=== PATIENT | female | born 1945 | race Caucasian/White ===

== ENCOUNTER 2017-05-27 05:56 | Inpatient (IN) | payer MEDICARE, BC ==
[2017-05-26 14:58] LABS: BASOPHILS % (AUTO) 0.3 % (0-1); EOSINOPHILS # (AUTO) 0.3 X10'3 (0-0.9); EOSINOPHILS % (AUTO) 3.1 % (0-6); LYMPHOCYTES # (AUTO) 2.8 X10'3 (1.1-4.8); LYMPHOCYTES % (AUTO) 28.2 % (21-51); MEAN CORPUSCULAR HEMOGLOBIN 25.6 PG (27.0-31.0); MEAN CORPUSCULAR HGB CONC 32.7 % (33.0-36.5); MEAN CORPUSCULAR VOLUME 78.5 FL (78-98); MEAN PLATELET VOLUME 9.6 FL (7.4-10.4); MONOCYTES # (AUTO) 0.6 X10'3 (0-0.9); MONOCYTES % (AUTO) 6.2 % (2-12); NEUTROPHILS # (AUTO) 6.3 X10'3 (1.8-7.7); NEUTROPHILS % (AUTO) 62.2 % (42-75); PRE OP HEMOGLOBIN 11.8 g/dL (12.0-16.0); PRE OP PLATELET COUNT 324 X10'3 (140-440); RED BLOOD COUNT 4.59 X10'6 (4.20-5.60)
[2017-05-26 15:13] LABS: PRE OP PROTIME 10.1 SECONDS (9.0-12.0)
[2017-05-26 15:20] LABS: ALBUMIN 3.6 G/DL (3.4-5.0); ALBUMIN/GLOBULIN RATIO 0.9 (1.1-1.5); ALKALINE PHOSPHATASE 94 IU/L (46-116); BLOOD UREA NITROGEN 13 MG/DL (7-18); BUN/CREATININE RATIO 14.4 (6.6-38.0); CALCIUM 9.2 MG/DL (8.5-10.1); CHLORIDE 109 MMOL/L (99-107); PRE OP ALT 23 U/L (30-65); PRE OP ANION GAP 7 (8-16); PRE OP AST 20 U/L (10-37); PRE OP BILIRUB, TOTAL 0.4 MG/DL (0.0-1.0); PRE OP GLUCOSE 116 MG/DL (70-104); PRE OP POTASSIUM 4.1 MMOL/L (3.4-5.1); PRE OP SODIUM 144 MMOL/L (135-145); TOTAL CARBON DIOXIDE 27.8 MMOL/L (24-32); TOTAL PROTEIN 7.5 G/DL (6.4-8.2); eGFR 61 ML/MIN
[~2017-05-27] VITALS: Ht 152.4 cm; Wt 76.2 kg
[~2017-05-27 05:56] MED LIST: CALC-491 PO; CHOL10002 PO; METH10005 PO; OMEP20CA10 PO; VANCOMYCIN INJ 1000 MG in NORMAL SALINE 250ml IV.SOLN IV ONE; VITA150T PO; VITC500T PO; VITE1000C PO; ceFAZolin 2gm in dextrose, iso 100 ML IV ONE; famotidine 20mg tablet PO ONE; ringers solution, lacted 1,000 ML IV SCH; tranexamic acid inj. 750 MG in normal saline 100ml IV soln 92.5 ML IV ONE
[2017-05-27] MEDS ORDERED: LIDOcaine 1% (10mg/ml) 2ml vial ONE (06:19)
[2017-05-27] MEDS ORDERED: vancomycin 1,000mg inj ONE (06:48)
[2017-05-27] MEDS ORDERED: ketorolac trometh. 30mg/ml inj. ONE (06:48)
[2017-05-27] MEDS ORDERED: ROPIVAcaine 0.5% (5mg/ml) 30ml vial ONE (06:48)
[2017-05-27] MEDS ORDERED: iohexol 300mg/ml 100ml inj. ONE (08:07)
[2017-05-27 09:52] VITALS: BP 140/75
[2017-05-27 09:53] VITALS: BP 140/75
== END 2017-05-27 09:00 | disposition home or self-care (01) | DRG 554 ==
LOC: PAS IN 05:56 → EDSTATUS 09:00
PROVIDERS: ADMIT Orthopaedic Surgery; ATTEND Orthopaedic Surgery
PROC: BW241ZZ Computerized Tomography (CT Scan) of Chest and Abdomen using Low Osmolar Contrast (ICD-10-PCS; principal; 2017-05-27)
DX: M17.12 Unilateral primary osteoarthritis, left knee (principal); Z53.09 Procedure and treatment not carried out because of other contraindication; Z96.651 Presence of right artificial knee joint; Z88.2 Allergy status to sulfonamides; Z88.5 Allergy status to narcotic agent; Z79.899 Other long term (current) drug therapy; Z87.891 Personal history of nicotine dependence
CPT/HCPCS: 36415; 71046; 71260; 80053; 85025; 85610; 85730; 87070; J0690; J1885; J2795; J3370; J3490; J7030; J7120; Q9967

== ENCOUNTER 2017-06-03 07:20 | Day surgery (SDC) | payer MEDICARE, BC ==
[~2017-06-03] VITALS: Ht 152.4 cm; Wt 75.9 kg
[~2017-06-03 07:20] MED LIST changes: -VANCOMYCIN INJ 1000 MG in NORMAL SALINE 250ml IV.SOLN IV ONE; -ceFAZolin 2gm in dextrose, iso 100 ML IV ONE; -famotidine 20mg tablet PO ONE; -ringers solution, lacted 1,000 ML IV SCH; -tranexamic acid inj. 750 MG in normal saline 100ml IV soln 92.5 ML IV ONE
[2017-06-03 07:40] VITALS: BP 119/88
[2017-06-03] MEDS ORDERED: normal saline 1000ml 1,000 ML IV PRN (08:00)
[2017-06-03] MEDS ORDERED: fentaNYL/PF 50MCG/1 ML 2ML syringe IV PRN (08:45)
[2017-06-03] MEDS ORDERED: midazolam 2 mg/2 ml injection IV PRN (08:45)
[2017-06-03] MEDS ORDERED: midazolam 2 mg/2 ml injection ONE (09:03)
[2017-06-03 09:38] VITALS: BP 117/53
[2017-06-03 09:54] VITALS: BP 113/49
[2017-06-03 10:05] VITALS: BP 121/62
[2017-06-03 10:30] VITALS: BP 121/62
[2017-06-03 14:30] VITALS: BP 114/67
== END 2017-06-03 14:50 | disposition home or self-care (01) ==
LOC: SSTAY O 07:20
PROVIDERS: ATTEND Radiology Vascular & Interventional Radiology
DX: C34.12 Malignant neoplasm of upper lobe, left bronchus or lung (principal); E78.5 Hyperlipidemia, unspecified; M19.90 Unspecified osteoarthritis, unspecified site; Z87.891 Personal history of nicotine dependence; M81.0 Age-related osteoporosis without current pathological fracture; Z90.89 Acquired absence of other organs; Z98.890 Other specified postprocedural states; Z72.89 Other problems related to lifestyle; Z79.899 Other long term (current) drug therapy; Z88.5 Allergy status to narcotic agent; Z88.2 Allergy status to sulfonamides; Z88.0 Allergy status to penicillin; Z88.6 Allergy status to analgesic agent
CPT/HCPCS: 32405; 71045; 77012; 88341; 88342; J2250; J7030; 88305

== ENCOUNTER 2019-09-13 14:03 | Inpatient (IN) | payer MEDICARE, BC ==
[~2019-09-13] VITALS: Ht 152.4 cm; Wt 72.7 kg
[~2019-09-13 14:03] MED LIST changes: +ALBU8HFA PO; +ASPI-1264 PO; +B12 PO; -CALC-491 PO; +CLOTRIMAZOLE CREAM; +DOCU-148; +FERR325T28 PO; +MILK175C5 PO; +MILK1TAB PO; +MOME17SP BOTHNARES; +MULT-1085 PO; +OMEG-143 PO; +OMEG1CAP2 PO; -OMEP20CA10 PO; +OMEP20CA15 PO; +TRIAMCINOLONE CREAM; -VITA150T PO; +VITAMIN A PO; +[UNRECOGNIZED DRUG - MIXTURE]
[2019-09-13 14:57] LABS: BASOPHILS # (AUTO) 0.1 X10'3 (0-0.2); BASOPHILS % (AUTO) 0.5 % (0-1); EOSINOPHILS # (AUTO) 0.8 X10'3 (0-0.9); EOSINOPHILS % (AUTO) 5.2 % (0-6); HEMATOCRIT 28.6 % (35.0-45.0); HEMOGLOBIN 9.2 g/dl (12.0-16.0); LYMPHOCYTES # (AUTO) 1.8 X10'3 (1.1-4.8); MEAN CORPUSCULAR HEMOGLOBIN 26.6 PG (27.0-31.0); MEAN CORPUSCULAR HGB CONC 32.1 g/dL (33.0-36.5); MEAN CORPUSCULAR VOLUME 82.8 FL (78-98); MEAN PLATELET VOLUME 8.9 FL (7.4-10.4); MONOCYTES # (AUTO) 0.7 X10'3 (0-0.9); MONOCYTES % (AUTO) 4.4 % (2-12); NEUTROPHILS # (AUTO) 12.9 X10'3 (1.8-7.7); NEUTROPHILS % (AUTO) 78.9 % (42-75); PLATELET COUNT 366 X10'3 (140-440); RED BLOOD COUNT 3.46 X10'6 (4.20-5.60); RED CELL DISTRIBUTION WIDTH 17.3 % (11.5-14.5); WHITE BLOOD COUNT 16.4 X10'3 (4.5-11.0)
[2019-09-13 15:16] LABS: ALANINE AMINOTRANSFERASE 62 U/L (12-78); ALBUMIN 2.8 G/DL (3.4-5.0); ALBUMIN/GLOBULIN RATIO 0.6 (1.1-1.5); ALKALINE PHOSPHATASE 315 IU/L (46-116); ANION GAP 15 (8-16); ASPARTATE AMINO TRANSFERASE 41 U/L (10-37); BILIRUBIN,TOTAL 0.4 MG/DL (0.1-1.0); BLOOD UREA NITROGEN 20 MG/DL (7-18); BUN/CREATININE RATIO 15.6 (6.6-38.0); CALCIUM 9.7 MG/DL (8.5-10.1); CHLORIDE 100 MMOL/L (99-107); CREATININE 1.28 MG/DL (0.40-0.90); GLUCOSE 104 MG/DL (70-104); POTASSIUM 3.1 MMOL/L (3.5-5.1); SODIUM 136 MMOL/L (135-145); TOTAL CARBON DIOXIDE 20.6 MMOL/L (24-32); TOTAL PROTEIN 7.3 G/DL (6.4-8.2); eGFR 41 ML/MIN
[2019-09-13 15:29] LABS: C-REACTIVE PROTEIN 18.97 MG/DL (0.0-0.5); LACTATE DEHYDROGENASE 248 U/L (81-234)
[2019-09-13 15:33] LABS: FERRITIN 87 NG/ML (8-252)
[2019-09-13] MEDS ORDERED: cefepime 1GM in D5W 50mL 50 ML IV ONE (15:50)
[2019-09-13] MEDS ORDERED: normal saline 1000ML IV soln IV ONE (15:50)
[2019-09-13] MEDS ORDERED: ondansetron/PF 4mg/2ml inj IV PRN (17:20)
[2019-09-13] MEDS ORDERED: acetaminophen 325mg tablet PO PRN (17:20)
[2019-09-13] MEDS: normal saline 1000ml 1,000 ML IV SCH (17:20)
[2019-09-13] MEDS ORDERED: mag hydrox/Alum hydrox/simeth 30ml oral suspension PO PRN (17:20)
[2019-09-13] MEDS ORDERED: magnesium hydroxide 30ml (MOM) UD suspension PO PRN (17:20)
[2019-09-13] MEDS ORDERED: CYAN-51 PO (18:11)
[2019-09-13] MEDS ORDERED: VITA-332 PO (18:11)
[2019-09-13] MEDS ORDERED: NYST1000 PO (18:19)
[2019-09-13] MEDS ORDERED: nystatin 500,000 unit/5ML UD oral suspension PO PRN (18:25)
--- NOTE | 2019-09-13 19:20 | NUR ---
Alpa Emery, daughter
[2019-09-13] MEDS: vancomycin 250MG/10ML UD oral solution 10ML BOTTLE PO SCH (20:27)
[2019-09-13] MEDS: heparin, porcine 5000 units/ml vial SQ SCH (20:28)
[2019-09-13] MEDS ORDERED: potassium Cl 20 mEq SR tablet PO PRN (22:00)
[2019-09-13] MEDS ORDERED: potassium CL 10mEq/100ml bag 100 ML IV PRN (22:00)
[2019-09-13 22:35] VITALS: BP 104/47
[2019-09-14] MEDS: cefepime 1GM in D5W 50mL 50 ML IV SCH ×3 (00:06→16:07)
[2019-09-14] MEDS: potassium Cl 20 mEq SR tablet PO PRN ×2 (02:26→21:08)
[2019-09-14] MEDS: vancomycin 250MG/10ML UD oral solution 10ML BOTTLE PO SCH ×4 (02:26→21:07)
[2019-09-14 02:41] LABS: BASOPHILS # (AUTO) 0.1 X10'3 (0-0.2); BASOPHILS % (AUTO) 0.3 % (0-1); EOSINOPHILS # (AUTO) 0.4 X10'3 (0-0.9); EOSINOPHILS % (AUTO) 2.2 % (0-6); HEMATOCRIT 25.3 % (35.0-45.0); HEMOGLOBIN 8.4 g/dl (12.0-16.0); LYMPHOCYTES # (AUTO) 1.2 X10'3 (1.1-4.8); LYMPHOCYTES % (AUTO) 5.9 % (21-51); MEAN CORPUSCULAR HEMOGLOBIN 27.2 PG (27.0-31.0); MEAN CORPUSCULAR HGB CONC 33.1 g/dL (33.0-36.5); MEAN CORPUSCULAR VOLUME 82.4 FL (78-98); MEAN PLATELET VOLUME 8.7 FL (7.4-10.4); MONOCYTES # (AUTO) 0.6 X10'3 (0-0.9); MONOCYTES % (AUTO) 2.7 % (2-12); NEUTROPHILS # (AUTO) 18.2 X10'3 (1.8-7.7); NEUTROPHILS % (AUTO) 88.9 % (42-75); PLATELET COUNT 336 X10'3 (140-440); RED BLOOD COUNT 3.07 X10'6 (4.20-5.60); WHITE BLOOD COUNT 20.4 X10'3 (4.5-11.0)
[2019-09-14 02:52] LABS: ALBUMIN 2.5 G/DL (3.4-5.0); ANION GAP 13 (8-16); BLOOD UREA NITROGEN 15 MG/DL (7-18); BUN/CREATININE RATIO 13.9 (6.6-38.0); CALCIUM 8.6 MG/DL (8.5-10.1); CHLORIDE 105 MMOL/L (99-107); CREATININE 1.08 MG/DL (0.40-0.90); GLUCOSE 116 MG/DL (70-104); MAGNESIUM 1.9 MG/DL (1.5-2.4); POTASSIUM 3.4 MMOL/L (3.5-5.1); SODIUM 138 MMOL/L (135-145); TOTAL CARBON DIOXIDE 19.9 MMOL/L (24-32); eGFR 49 ML/MIN
[2019-09-14 03:19] LABS: ANISOCYTOSIS 1+; PLATELET ESTIMATE NORMAL; TOTAL CELLS COUNTED 100
[2019-09-14] MEDS: normal saline 1000ml 1,000 ML IV SCH ×2 (03:47→13:20)
[2019-09-14 06:00] VITALS: BP 100/34
[2019-09-14] MEDS ORDERED: FATTY ACIDS PO SCH (08:00)
[2019-09-14] MEDS ORDERED: METHYLSULFONYLMETHANE PO SCH (08:00)
[2019-09-14] MEDS ORDERED: FISH OIL PO SCH (08:00)
[2019-09-14] MEDS ORDERED: OMEGA PO SCH (08:00)
[2019-09-14] MEDS ORDERED: [UNRECOGNIZED DRUG - OTHER] PO SCH (08:00)
[2019-09-14] MEDS ORDERED: VITAMIN A ACETATE PO SCH (08:00)
[2019-09-14] MEDS: heparin, porcine 5000 units/ml vial SQ SCH ×2 (09:07→21:07)
[2019-09-14] MEDS: ascorbic acid 500mg tablet PO SCH (09:08)
[2019-09-14] MEDS: vitamin D (cholecalciferol) 1,000 unit tablet PO SCH (09:10)
[2019-09-14] MEDS: multivitamins, therapeutics tablet PO SCH (09:10)
[2019-09-14] MEDS: pantoprazole 40mg Tablet.DR PO SCH (09:10)
[2019-09-14] MEDS ORDERED: ipratropium/albuterol 3ml nebule NEB PRN (10:05)
[2019-09-14] MEDS ORDERED: magnesium 4gm in 100ml NS 100 ML IV PRN (10:05)
[2019-09-14] MEDS: K and/or MAG REPLACEMENT MC SCH ×2 (10:05→20:00)
[2019-09-14] MEDS: levoFLOXACIN-Levaquin 750MG/D5 150 ML IV SCH (10:05)
[2019-09-14] MEDS ORDERED: magnesium Cl slow-release 64mg tablet PO PRN (10:05)
[2019-09-14 11:00] VITALS: BP 106/39
[2019-09-14] MEDS ORDERED: methylPREDNISolone sod succ 125mg/2ml vial IV ONE (11:15)
[2019-09-14] MEDS ORDERED: iohexol 350MG/ML 100ml bottle IV ONE (11:38)
[2019-09-14] MEDS ORDERED: ipratropium/albuterol 3ml nebule NEB SCH (12:00)
--- NOTE | 2019-09-14 12:16 | NUR ---
Patient left for CT scan.
[2019-09-14 15:00] VITALS: BP 97/67
[2019-09-14] MEDS: ipratropium/albuterol 3ml nebule NEB SCH ×3 (16:11→23:04)
--- NOTE | 2019-09-14 17:28 | NUR ---
Notified PAGER ID: [phone] MESSAGE: [phone] Olive Lucas. HR is sustaining 120's up to 140's. DRAKE May ext [phone]
[2019-09-14] MEDS ORDERED: methylPREDNISolone sod succ/PF 40mg inj. IV SCH (18:00)
[2019-09-14] MEDS ORDERED: diltiazem 5mg/ml 5ml inj. IV ONE (18:05)
--- NOTE | 2019-09-14 19:45 | NUR ---
Patient in room PCU 3016. I have received report from DRAKE Stearns and had the opportunity to ask questions and assume patient care.
[2019-09-14 20:20] VITALS: BP 116/66
[2019-09-14 23:00] VITALS: BP 140/52
[2019-09-15] MEDS: normal saline 1000ml 1,000 ML IV SCH ×3 (00:19→23:25)
[2019-09-15] MEDS: cefepime 1GM in D5W 50mL 50 ML IV SCH ×4 (00:26→23:25)
[2019-09-15 01:59] VITALS: BP 130/65
[2019-09-15] MEDS: vancomycin 250MG/10ML UD oral solution 10ML BOTTLE PO SCH ×2 (02:06→08:09)
[2019-09-15] MEDS: potassium Cl 20 mEq SR tablet PO PRN (02:06)
[2019-09-15] MEDS: diltiazem 30mg tablet PO SCH ×4 (02:06→20:15)
[2019-09-15] MEDS: ipratropium/albuterol 3ml nebule NEB SCH ×6 (03:00→22:48)
[2019-09-15] MEDS: methylPREDNISolone sod succ/PF 40mg inj. IV SCH ×3 (04:19→20:16)
[2019-09-15 05:45] LABS: BASOPHILS % (AUTO) 0.3 % (0-1); EOSINOPHILS % (AUTO) 0 % (0-6); HEMATOCRIT 22.9 % (35.0-45.0); HEMOGLOBIN 7.5 g/dl (12.0-16.0); LYMPHOCYTES # (AUTO) 1.2 X10'3 (1.1-4.8); LYMPHOCYTES % (AUTO) 8.6 % (21-51); MEAN CORPUSCULAR HEMOGLOBIN 27.3 PG (27.0-31.0); MEAN CORPUSCULAR HGB CONC 32.9 g/dL (33.0-36.5); MEAN PLATELET VOLUME 8.8 FL (7.4-10.4); MONOCYTES # (AUTO) 0.4 X10'3 (0-0.9); MONOCYTES % (AUTO) 2.9 % (2-12); NEUTROPHILS # (AUTO) 12.3 X10'3 (1.8-7.7); NEUTROPHILS % (AUTO) 88.2 % (42-75); PLATELET COUNT 337 X10'3 (140-440); RED BLOOD COUNT 2.77 X10'6 (4.20-5.60); RED CELL DISTRIBUTION WIDTH 17.2 % (11.5-14.5)
[2019-09-15 05:58] LABS: ALBUMIN 2.5 G/DL (3.4-5.0); ANION GAP 14 (8-16); BLOOD UREA NITROGEN 13 MG/DL (7-18); BUN/CREATININE RATIO 11.9 (6.6-38.0); CALCIUM 9.9 MG/DL (8.5-10.1); CHLORIDE 110 MMOL/L (99-107); CREATININE 1.09 MG/DL (0.40-0.90); GLUCOSE 204 MG/DL (70-104); MAGNESIUM 1.7 MG/DL (1.5-2.4); POTASSIUM 3.7 MMOL/L (3.5-5.1); SODIUM 143 MMOL/L (135-145); TOTAL CARBON DIOXIDE 18.6 MMOL/L (24-32); eGFR 49 ML/MIN
--- NOTE | 2019-09-15 06:08 | NUR ---
Problems reprioritized. Patient report given, questions answered & plan of care reviewed with DRAKE Pierre.
[2019-09-15 07:00] VITALS: BP 140/72
[2019-09-15 07:40] LABS: ANISOCYTOSIS 1+; PLATELET ESTIMATE NORMAL; TOTAL CELLS COUNTED 100
[2019-09-15] MEDS: K and/or MAG REPLACEMENT MC SCH ×2 (08:00→20:00)
[2019-09-15] MEDS: ascorbic acid 500mg tablet PO SCH (08:07)
[2019-09-15] MEDS: cyanocobalamin 500mcg tablet PO SCH (08:08)
[2019-09-15] MEDS: multivitamins, therapeutics tablet PO SCH (08:08)
[2019-09-15] MEDS: pantoprazole 40mg Tablet.DR PO SCH (08:09)
[2019-09-15] MEDS: heparin, porcine 5000 units/ml vial SQ SCH ×2 (08:09→20:16)
[2019-09-15] MEDS: vitamin D (cholecalciferol) 1,000 unit tablet PO SCH (08:09)
[2019-09-15] MEDS: levoFLOXACIN-Levaquin 750MG/D5 150 ML IV SCH (09:30)
--- NOTE | 2019-09-15 09:40 | NUR ---
Administered NS at 100mL/hr. Bag wouldn't scan.
--- NOTE | 2019-09-15 10:52 | NUR ---
New order from Dr. Kiran: Nystatin oral swish and swallow TID.
[2019-09-15 11:00] VITALS: BP 124/58
[2019-09-15 12:18] LABS: C DIFF ANTIGEN NEGATIVE (NEGATIVE); C DIFF SPECIMEN=DIARRHEA? ACCEPTABLE; C DIFFICILE TOXINS A&B NEGATIVE (Neg)
[2019-09-15] MEDS: nystatin 500,000 unit/5ML UD oral suspension PO SCH ×2 (13:00→20:17)
--- NOTE | 2019-09-15 14:56 | NUR ---
Per Dr. Kiran: Discontinue oral vancomycin. C-diff negative.
[2019-09-15 15:00] VITALS: BP 128/62
[2019-09-15 18:00] VITALS: BP 128/60
--- NOTE | 2019-09-15 18:25 | NUR ---
Problems reprioritized. Patient report given, questions answered & plan of care reviewed with Shelby RN. Patient stable at transfer of care.
--- NOTE | 2019-09-15 18:42 | NUR ---
Patient in room PCU 3011. I have received report from Gabby JUAN and had the opportunity to ask questions and assume patient care.
[2019-09-15] MEDS: lactobacillus rhamnosus 10,000 MMU CELLS/CAPSULE PO SCH (20:15)
[2019-09-15 22:00] VITALS: BP 124/72
[2019-09-16] VITALS (7 sets, daily range): BP systolic 110–132; BP diastolic 60–80
[2019-09-16] MEDS: diltiazem 30mg tablet PO SCH ×4 (02:22→21:13)
[2019-09-16] MEDS: ipratropium/albuterol 3ml nebule NEB SCH ×6 (03:04→22:34)
[2019-09-16] MEDS: methylPREDNISolone sod succ/PF 40mg inj. IV SCH ×3 (03:56→21:15)
[2019-09-16] MEDS: normal saline 1000ml 1,000 ML IV SCH ×2 (05:03→14:41)
[2019-09-16 06:02] LABS: BASOPHILS % (AUTO) 0.1 % (0-1); EOSINOPHILS % (AUTO) 0.1 % (0-6); HEMATOCRIT 22.7 % (35.0-45.0); HEMOGLOBIN 7.2 g/dl (12.0-16.0); LYMPHOCYTES # (AUTO) 1.4 X10'3 (1.1-4.8); LYMPHOCYTES % (AUTO) 6.1 % (21-51); MEAN CORPUSCULAR HEMOGLOBIN 26.5 PG (27.0-31.0); MEAN CORPUSCULAR HGB CONC 31.8 g/dL (33.0-36.5); MEAN CORPUSCULAR VOLUME 83.3 FL (78-98); MEAN PLATELET VOLUME 8.9 FL (7.4-10.4); MONOCYTES # (AUTO) 0.5 X10'3 (0-0.9); MONOCYTES % (AUTO) 2.2 % (2-12); NEUTROPHILS # (AUTO) 20.4 X10'3 (1.8-7.7); NEUTROPHILS % (AUTO) 91.5 % (42-75); PLATELET COUNT 365 X10'3 (140-440); RED BLOOD COUNT 2.73 X10'6 (4.20-5.60); RED CELL DISTRIBUTION WIDTH 17.6 % (11.5-14.5); WHITE BLOOD COUNT 22.4 X10'3 (4.5-11.0)
--- NOTE | 2019-09-16 06:05 | NUR ---
Patient in room PCU 3011. I have received report from [facility] and had the opportunity to ask questions and assume patient care.
[2019-09-16 06:10] LABS: ALBUMIN 2.6 G/DL (3.4-5.0); ANION GAP 11 (8-16); BLOOD UREA NITROGEN 16 MG/DL (7-18); BUN/CREATININE RATIO 15.4 (6.6-38.0); CALCIUM 9.7 MG/DL (8.5-10.1); CHLORIDE 110 MMOL/L (99-107); CREATININE 1.04 MG/DL (0.40-0.90); GLUCOSE 214 MG/DL (70-104); MAGNESIUM 1.6 MG/DL (1.5-2.4); POTASSIUM 4.3 MMOL/L (3.5-5.1); SODIUM 142 MMOL/L (135-145); TOTAL CARBON DIOXIDE 21.5 MMOL/L (24-32); eGFR 52 ML/MIN
--- NOTE | 2019-09-16 06:43 | NUR ---
Problems reprioritized. Patient report given, questions answered & plan of care reviewed with Zulema JUAN.
[2019-09-16 07:06] LABS: ANISOCYTOSIS 1+; NUCLEATED RED BLOOD CELLS 1 /100WBC (0-0); PLATELET ESTIMATE NORMAL; TOTAL CELLS COUNTED 100
[2019-09-16] MEDS: K and/or MAG REPLACEMENT MC SCH ×2 (07:06→20:00)
[2019-09-16 07:07] LABS: HYPOCHROMASIA 1+; POLYCHROMASIA FEW
[2019-09-16 07:09] LABS: SCHISTOCYTES FEW
[2019-09-16] MEDS: cefepime 1GM in D5W 50mL 50 ML IV SCH ×2 (08:58→16:19)
[2019-09-16] MEDS: sodium bicarbonate 650mg tablet PO SCH ×3 (09:09→21:13)
[2019-09-16] MEDS: nystatin 500,000 unit/5ML UD oral suspension PO SCH ×3 (09:09→21:13)
[2019-09-16] MEDS: multivitamins, therapeutics tablet PO SCH (09:09)
[2019-09-16] MEDS: lactobacillus rhamnosus 10,000 MMU CELLS/CAPSULE PO SCH ×2 (09:09→21:13)
[2019-09-16] MEDS: pantoprazole 40mg Tablet.DR PO SCH (09:09)
[2019-09-16] MEDS: vitamin D (cholecalciferol) 1,000 unit tablet PO SCH (09:10)
[2019-09-16] MEDS: ascorbic acid 500mg tablet PO SCH (09:10)
[2019-09-16] MEDS: cyanocobalamin 500mcg tablet PO SCH (09:10)
[2019-09-16] MEDS: heparin, porcine 5000 units/ml vial SQ SCH ×2 (09:11→21:15)
[2019-09-16 12:04] LABS: % IRON SATURATION 13 % (11-46); IRON 39 UG/DL (49-151); TOTAL IRON BINDING CAPACITY 291 UG/DL (259-388)
--- NOTE | 2019-09-16 18:16 | NUR ---
Problems reprioritized. Patient report given, questions answered & plan of care reviewed with Tello.
--- NOTE | 2019-09-16 18:26 | NUR ---
Patient in room PCU 3011. I have received report from Zulema JUAN and had the opportunity to ask questions and assume patient care.
[2019-09-17] VITALS (8 sets, daily range): BP systolic 115–132; BP diastolic 54–82
[2019-09-17] MEDS: cefepime 1GM in D5W 50mL 50 ML IV SCH ×3 (00:22→17:20)
[2019-09-17] MEDS: normal saline 1000ml 1,000 ML IV SCH (01:04)
[2019-09-17] MEDS: diltiazem 30mg tablet PO SCH ×4 (02:46→20:08)
[2019-09-17] MEDS: ipratropium/albuterol 3ml nebule NEB SCH ×6 (02:58→22:56)
[2019-09-17 05:13] LABS: BASOPHILS % (AUTO) 0.1 % (0-1); EOSINOPHILS % (AUTO) 0 % (0-6); LYMPHOCYTES # (AUTO) 1.7 X10'3 (1.1-4.8); MEAN CORPUSCULAR HGB CONC 32.3 g/dL (33.0-36.5); MEAN CORPUSCULAR VOLUME 83.8 FL (78-98); MEAN PLATELET VOLUME 9.1 FL (7.4-10.4); MONOCYTES # (AUTO) 0.8 X10'3 (0-0.9); MONOCYTES % (AUTO) 4.3 % (2-12); NEUTROPHILS # (AUTO) 16.6 X10'3 (1.8-7.7); NEUTROPHILS % (AUTO) 86.6 % (42-75); PLATELET COUNT 342 X10'3 (140-440); RED BLOOD COUNT 2.53 X10'6 (4.20-5.60); RED CELL DISTRIBUTION WIDTH 17.7 % (11.5-14.5); WHITE BLOOD COUNT 19.2 X10'3 (4.5-11.0)
[2019-09-17 05:23] LABS: HEMATOCRIT 21.2 % (35.0-45.0); HEMOGLOBIN 6.8 g/dl (12.0-16.0)
[2019-09-17 05:27] LABS: ALBUMIN 2.6 G/DL (3.4-5.0); ANION GAP 8 (8-16); BLOOD UREA NITROGEN 20 MG/DL (7-18); BUN/CREATININE RATIO 17.9 (6.6-38.0); CALCIUM 9.7 MG/DL (8.5-10.1); CHLORIDE 110 MMOL/L (99-107); CREATININE 1.12 MG/DL (0.40-0.90); GLUCOSE 208 MG/DL (70-104); MAGNESIUM 1.7 MG/DL (1.5-2.4); POTASSIUM 4.1 MMOL/L (3.5-5.1); SODIUM 143 MMOL/L (135-145); eGFR 47 ML/MIN
--- NOTE | 2019-09-17 05:33 | NUR ---
Page Sent PAGER ID: [phone] MESSAGE: Pt-Olive Lucas # [id number] Critical lab value Hct/Hgb=6.8/21.2 Please advise-Thank you Tello JUAN [phone]
--- NOTE | 2019-09-17 06:36 | NUR ---
Problems reprioritized. Patient report given, questions answered & plan of care reviewed with Zulema JUAN.
--- NOTE | 2019-09-17 06:39 | NUR ---
Patient in room PCU 3011. I have received report from Tello and had the opportunity to ask questions and assume patient care.
[2019-09-17 07:13] LABS: TOTAL CELLS COUNTED 100
[2019-09-17 07:14] LABS: ANISOCYTOSIS 1+; HYPOCHROMASIA 1+; PLATELET ESTIMATE NORMAL; POLYCHROMASIA 1+
[2019-09-17] MEDS: methylPREDNISolone sod succ/PF 40mg inj. IV SCH ×2 (07:34→20:14)
--- NOTE | 2019-09-17 07:35 | NUR ---
Spoke with pt's daughter Alpa (DD), via speaker phone while in room with pt. Pt's daughter is quite inquisitive regarding pt's care, to the point the pt asked her to not intrude. Pt's daughter demanded that certain tests be ordered (bone marrow etc.), labs, and to hold the ordered unit of blood until pt's daughter could speak with MD. Pt's daughter wanted to know where [facility] obtaind the blood products, what the financial arrangements were, the cost of the blood and all but demanded a panel of hospitalists/administration hold a meeting regarding the course of pt's care. Pt's daughter requested we obtain her medical records from [facility], speak with pt's oncologist among a battery of other requests. I paged indicating pt's daughter wanted a call back. Pt's daughter called the charge nurse and she called and spoke with me at length. Pt's daughter wanted to know all of the definitive diagnosis' and what testing was being performed. Pt's daughter also called the nursing sorting supervisor. I advised nursing bibie of the details of the conversation with pt's daughter. Pt's daughter requested all of pt's medical records. HIM came to see pt and a release was signed.
[2019-09-17] MEDS: K and/or MAG REPLACEMENT MC SCH ×2 (07:40→20:00)
[2019-09-17] MEDS: pantoprazole 40mg Tablet.DR PO SCH (07:41)
[2019-09-17] MEDS: lactobacillus rhamnosus 10,000 MMU CELLS/CAPSULE PO SCH ×2 (07:41→20:07)
[2019-09-17] MEDS: nystatin 500,000 unit/5ML UD oral suspension PO SCH ×3 (07:41→20:18)
[2019-09-17] MEDS: multivitamins, therapeutics tablet PO SCH (07:41)
[2019-09-17] MEDS: cyanocobalamin 500mcg tablet PO SCH (07:41)
[2019-09-17] MEDS: ascorbic acid 500mg tablet PO SCH (07:41)
[2019-09-17] MEDS: sodium bicarbonate 650mg tablet PO SCH ×3 (07:41→20:09)
[2019-09-17] MEDS: heparin, porcine 5000 units/ml vial SQ SCH ×2 (07:42→20:17)
--- NOTE | 2019-09-17 08:05 | NUR ---
PAGER ID: [phone] MESSAGE: Zulema Love on PCU, Ms. Lucas in 301 has questions regarding her diagnosis and wishes to delay the transfusion until she is able to speak with you Thank you #[phone] or [phone]
[2019-09-17] MEDS: vitamin D (cholecalciferol) 1,000 unit tablet PO SCH (08:32)
[2019-09-17] MEDS: levoFLOXACIN-Levaquin 750MG/D5 150 ML IV SCH (09:43)
--- NOTE | 2019-09-17 11:22 | NUR ---
PAGER ID: [phone] MESSAGE: Kate Royce Lance in 3010, daughter Alpa called again, would like a call back at your earliest convenience, , thank you Zulema [phone]
[2019-09-17] MEDS: benzonatate 100mg capsule PO PRN ×2 (11:38→18:30)
[2019-09-17] MEDS: benzocaine/menthol oral lozeng 1 EACH BOX MM PRN ×2 (11:42→17:20)
[2019-09-17] MEDS: aspirin 325mg tablet PO PRN ×2 (13:24→20:30)
--- NOTE | 2019-09-17 17:44 | NUR ---
During media manager in pt's room, pt's daughter Alpa was on the phone again. Pt put the phone on speaker phone and the daughter insisted that another set of lab testing be performed. Pt's daughter requested erythropoietin, blasts and anything related to leukemia. Pt's daughter verbalized anger towards pt's hospitalist stating her request for a call back was never received. Pt's daughter voiced concerns about pt's own PCP not being able to come to the hospital to see the pt. Pt's daughter also indicated she will be contacting administration.
--- NOTE | 2019-09-17 18:11 | NUR ---
Problems reprioritized. Patient report given, questions answered & plan of care reviewed with Jody.
[2019-09-17 19:53] LABS: HEMATOCRIT 28.3 % (35.0-45.0); MEAN CORPUSCULAR HGB CONC 31.9 g/dL (33.0-36.5); MEAN CORPUSCULAR VOLUME 84.6 FL (78-98); MEAN PLATELET VOLUME 9.3 FL (7.4-10.4); PLATELET COUNT 391 X10'3 (140-440); RED BLOOD COUNT 3.35 X10'6 (4.20-5.60); RED CELL DISTRIBUTION WIDTH 17.2 % (11.5-14.5); WHITE BLOOD COUNT 23.3 X10'3 (4.5-11.0)
--- NOTE | 2019-09-17 20:00 | NUR ---
spoke with patients daughter about her concerns. read her CT report that states that patient does not have pnuemonia or a PE, gave her update on new hemogram and explained to her that with all the tests she would like to have ordered, that this may have to happen outpatient, as her mother is being treated for what she came in with and is doing better. She agreed that patient sounded better and that she understood that all her requests are related to patients previous cancer. I also explained that patient has order for hemocult stool and that she is getting protonix for possible GI bleed.
[2019-09-17] MEDS: pantoprazole 40 MG vial IV SCH (20:14)
[2019-09-18] MEDS: normal saline 1000ml 1,000 ML IV SCH ×2 (00:01→20:09)
[2019-09-18] MEDS: cefepime 1GM in D5W 50mL 50 ML IV SCH ×4 (00:17→23:08)
--- NOTE | 2019-09-18 01:33 | NUR ---
reviewed and agree with SRN assessment findings
[2019-09-18 02:00] VITALS: BP 120/70
[2019-09-18] MEDS: diltiazem 30mg tablet PO SCH ×4 (02:41→19:57)
[2019-09-18] MEDS: ipratropium/albuterol 3ml nebule NEB SCH ×6 (03:14→23:52)
[2019-09-18 06:00] VITALS: BP 127/61
--- NOTE | 2019-09-18 06:12 | NUR ---
Problems reprioritized. Patient report given, questions answered & plan of care reviewed with DRAKE Garcia.
[2019-09-18 06:41] LABS: BASOPHILS % (AUTO) 0.1 % (0-1); EOSINOPHILS % (AUTO) 0 % (0-6); HEMATOCRIT 25.7 % (35.0-45.0); HEMOGLOBIN 8.5 g/dl (12.0-16.0); LYMPHOCYTES # (AUTO) 1.6 X10'3 (1.1-4.8); LYMPHOCYTES % (AUTO) 9.3 % (21-51); MEAN CORPUSCULAR HEMOGLOBIN 27.9 PG (27.0-31.0); MEAN CORPUSCULAR HGB CONC 32.9 g/dL (33.0-36.5); MEAN CORPUSCULAR VOLUME 84.8 FL (78-98); MEAN PLATELET VOLUME 9.1 FL (7.4-10.4); MONOCYTES # (AUTO) 0.9 X10'3 (0-0.9); MONOCYTES % (AUTO) 5.3 % (2-12); NEUTROPHILS # (AUTO) 14.9 X10'3 (1.8-7.7); NEUTROPHILS % (AUTO) 85.3 % (42-75); PLATELET COUNT 365 X10'3 (140-440); RED BLOOD COUNT 3.03 X10'6 (4.20-5.60); WHITE BLOOD COUNT 17.5 X10'3 (4.5-11.0)
[2019-09-18 06:53] LABS: ALBUMIN 2.7 G/DL (3.4-5.0); ANION GAP 10 (8-16); BLOOD UREA NITROGEN 25 MG/DL (7-18); BUN/CREATININE RATIO 23.8 (6.6-38.0); CALCIUM 9.1 MG/DL (8.5-10.1); CHLORIDE 109 MMOL/L (99-107); CREATININE 1.05 MG/DL (0.40-0.90); GLUCOSE 166 MG/DL (70-104); POTASSIUM 3.9 MMOL/L (3.5-5.1); SODIUM 144 MMOL/L (135-145); TOTAL CARBON DIOXIDE 25.3 MMOL/L (24-32); eGFR 51 ML/MIN
[2019-09-18 07:26] LABS: ANISOCYTOSIS 1+; MICROCYTOSIS 1+; PLATELET ESTIMATE NORMAL; TOTAL CELLS COUNTED 100
[2019-09-18 07:27] LABS: POIKILOCYTOSIS FEW; POLYCHROMASIA FEW
[2019-09-18] MEDS: K and/or MAG REPLACEMENT MC SCH ×2 (08:00→20:00)
[2019-09-18] MEDS: pantoprazole 40 MG vial IV SCH (08:16)
[2019-09-18] MEDS: heparin, porcine 5000 units/ml vial SQ SCH ×4 (08:17→20:27)
[2019-09-18] MEDS: methylPREDNISolone sod succ/PF 40mg inj. IV SCH ×2 (08:17→19:57)
[2019-09-18] MEDS: lactobacillus rhamnosus 10,000 MMU CELLS/CAPSULE PO SCH ×2 (08:18→19:57)
[2019-09-18] MEDS: nystatin 500,000 unit/5ML UD oral suspension PO SCH ×3 (08:18→20:14)
[2019-09-18] MEDS: sodium bicarbonate 650mg tablet PO SCH ×3 (08:19→20:09)
[2019-09-18] MEDS: multivitamins, therapeutics tablet PO SCH (08:19)
[2019-09-18] MEDS: ascorbic acid 500mg tablet PO SCH (08:19)
[2019-09-18] MEDS: cyanocobalamin 500mcg tablet PO SCH (08:19)
[2019-09-18] MEDS: vitamin D (cholecalciferol) 1,000 unit tablet PO SCH (08:20)
[2019-09-18] MEDS: benzonatate 100mg capsule PO PRN (10:02)
[2019-09-18] MEDS: benzocaine/menthol oral lozeng 1 EACH BOX MM PRN ×2 (10:03→14:07)
[2019-09-18 10:04] LABS: OCCULT BLOOD STOOL POSITIVE (Neg)
[2019-09-18 11:00] VITALS: BP 129/62
--- NOTE | 2019-09-18 13:14 | NUR ---
Initial: Pt admit with sepsis, probable PNA, pulmonary fibrosis, and COPD exacerbation with hx stage IV lung CA with involvement of the hip. Negative for PE per MD notes. Pt currently on heart healthy diet documented with 75-100% PO intake throughout LOS meeting nutrient needs. LBM 09/16. No edema or wounds. No nutrition intervention warranted at this time. Will continue to follow. Recommendations: 1) Continue heart healthy diet 2) Bowel care PRN 3) Scaled wt per rx Addendum: 09/18/19 at [address] Amended: Links added.
[2019-09-18 16:48] LABS: PARTIAL THROMBOPLASTIN TIME 23 SECONDS (22-32)
--- NOTE | 2019-09-18 17:03 | NUR ---
PAGER ID: [phone] MESSAGE: Radha menendez [phone] re Olive Lucas in 3011a- pt would like something more to control cough and help w mucus production. Can she have Mucinex? And maybe robitussin for nights? Tessalon florence not very effective
[2019-09-18] MEDS: pantoprazole 40mg Tablet.DR PO SCH (17:22)
--- NOTE | 2019-09-18 18:24 | NUR ---
Patient in room PCU 3011. I have received report from DRAKE Garcia and had the opportunity to ask questions and assume patient care.
[2019-09-18 22:00] VITALS: BP 120/58
[2019-09-19] VITALS (17 sets, daily range): BP systolic 103–163; BP diastolic 39–74
[2019-09-19] MEDS: diltiazem 30mg tablet PO SCH ×4 (01:25→19:53)
[2019-09-19] MEDS: ipratropium/albuterol 3ml nebule NEB SCH ×6 (03:51→23:26)
--- NOTE | 2019-09-19 06:30 | NUR ---
Patient in room PCU 3011. I have received report from marylou tucker and had the opportunity to ask questions and assume patient care.
--- NOTE | 2019-09-19 06:46 | NUR ---
Problems reprioritized. Patient report given, questions answered & plan of care reviewed with DRAKE Alston.
[2019-09-19] MEDS: heparin, porcine 5000 units/ml vial SQ SCH (07:48)
[2019-09-19] MEDS: pantoprazole 40mg Tablet.DR PO SCH ×2 (08:07→17:12)
[2019-09-19] MEDS: methylPREDNISolone sod succ/PF 40mg inj. IV SCH (08:09)
[2019-09-19] MEDS: lactobacillus rhamnosus 10,000 MMU CELLS/CAPSULE PO SCH ×2 (08:10→19:53)
[2019-09-19] MEDS: sodium bicarbonate 650mg tablet PO SCH ×3 (08:11→22:30)
[2019-09-19] MEDS: nystatin 500,000 unit/5ML UD oral suspension PO SCH ×3 (08:11→22:31)
[2019-09-19] MEDS: multivitamins, therapeutics tablet PO SCH (08:11)
[2019-09-19] MEDS: ascorbic acid 500mg tablet PO SCH (08:12)
[2019-09-19] MEDS: cyanocobalamin 500mcg tablet PO SCH (08:12)
[2019-09-19] MEDS: vitamin D (cholecalciferol) 1,000 unit tablet PO SCH (08:13)
[2019-09-19] MEDS: cefepime 1GM in D5W 50mL 50 ML IV SCH (08:21)
[2019-09-19] MEDS: levoFLOXACIN-Levaquin 750MG/D5 150 ML IV SCH (09:01)
[2019-09-19] MEDS ORDERED: fentaNYL/PF 50MCG/1 ML 2ML syringe ONE (09:02)
[2019-09-19] MEDS ORDERED: MIDAZolam 5mg/5ml vial ONE (09:03)
[2019-09-19] MEDS ORDERED: LIDOcaine Viscous 15ml cup ONE (09:03)
[2019-09-19] MEDS ORDERED: benzonatate 100mg capsule PO PRN (13:00)
--- NOTE | 2019-09-19 13:35 | NUR ---
PAGER ID: [phone] MESSAGE: 3011A/ROBERTO, WE HAVE NO FUTURE LAB ORDERS. WOULD YOU LIKE TO ORDER LABS FOR 07-21-19? KLEBER [phone]. TY
[2019-09-19 15:28] LABS: HEMOGLOBIN 8.4 g/dl (12.0-16.0); LYMPHOCYTES # (AUTO) 0.9 X10'3 (1.1-4.8); MEAN CORPUSCULAR HEMOGLOBIN 27.7 PG (27.0-31.0); MEAN PLATELET VOLUME 9.1 FL (7.4-10.4); MONOCYTES # (AUTO) 0.5 X10'3 (0-0.9)
[2019-09-19 15:30] LABS: BASOPHILS % (AUTO) 0.3 % (0-1); EOSINOPHILS % (AUTO) 0.1 % (0-6); HEMATOCRIT 25.6 % (35.0-45.0); LYMPHOCYTES % (AUTO) 7.3 % (21-51); MEAN CORPUSCULAR HGB CONC 32.9 g/dL (33.0-36.5); MEAN CORPUSCULAR VOLUME 84.4 FL (78-98); NEUTROPHILS # (AUTO) 10.9 X10'3 (1.8-7.7); NEUTROPHILS % (AUTO) 88.3 % (42-75); PLATELET COUNT 384 X10'3 (140-440); RED BLOOD COUNT 3.04 X10'6 (4.20-5.60); RED CELL DISTRIBUTION WIDTH 17.6 % (11.5-14.5); WHITE BLOOD COUNT 12.3 X10'3 (4.5-11.0)
[2019-09-19 15:31] LABS: ALBUMIN 2.7 G/DL (3.4-5.0); ANION GAP 8 (8-16); BLOOD UREA NITROGEN 25 MG/DL (7-18); BUN/CREATININE RATIO 24.8 (6.6-38.0); CALCIUM 8.9 MG/DL (8.5-10.1); CHLORIDE 105 MMOL/L (99-107); CREATININE 1.01 MG/DL (0.40-0.90); GLUCOSE 158 MG/DL (70-104); POTASSIUM 3.7 MMOL/L (3.5-5.1); SODIUM 139 MMOL/L (135-145); TOTAL CARBON DIOXIDE 25.8 MMOL/L (24-32); eGFR 53 ML/MIN
[2019-09-19] MEDS: K and/or MAG REPLACEMENT MC SCH ×2 (15:50→20:00)
[2019-09-19 15:53] LABS: ANISOCYTOSIS 2+; HYPOCHROMASIA 1+; PLATELET ESTIMATE NORMAL; POLYCHROMASIA 2+; TOTAL CELLS COUNTED 100
[2019-09-19] MEDS: normal saline 1000ml 1,000 ML IV SCH ×2 (17:35→19:54)
--- NOTE | 2019-09-19 18:05 | NUR ---
RECEIVED FROM ED VIA [facility], REPORT GIVEN TO DRAKE CRUZ, TO [address]
--- NOTE | 2019-09-19 18:22 | NUR ---
Problems reprioritized. Patient report given, questions answered & plan of care reviewed with marylou lewis.
[2019-09-20] MEDS: ipratropium/albuterol 3ml nebule NEB SCH ×3 (02:50→11:00)
[2019-09-20 03:00] VITALS: BP 116/53
[2019-09-20] MEDS: diltiazem 30mg tablet PO SCH ×3 (03:11→13:31)
[2019-09-20 05:58] LABS: BASOPHILS % (AUTO) 0.5 % (0-1); EOSINOPHILS % (AUTO) 0 % (0-6); HEMATOCRIT 23.9 % (35.0-45.0); HEMOGLOBIN 7.8 g/dl (12.0-16.0); LYMPHOCYTES # (AUTO) 1.5 X10'3 (1.1-4.8); LYMPHOCYTES % (AUTO) 14.8 % (21-51); MEAN CORPUSCULAR HEMOGLOBIN 28.1 PG (27.0-31.0); MEAN CORPUSCULAR HGB CONC 32.8 g/dL (33.0-36.5); MEAN CORPUSCULAR VOLUME 85.5 FL (78-98); MEAN PLATELET VOLUME 8.7 FL (7.4-10.4); MONOCYTES # (AUTO) 0.9 X10'3 (0-0.9); MONOCYTES % (AUTO) 8.7 % (2-12); NEUTROPHILS # (AUTO) 7.5 X10'3 (1.8-7.7); PLATELET COUNT 352 X10'3 (140-440); RED CELL DISTRIBUTION WIDTH 17.7 % (11.5-14.5); WHITE BLOOD COUNT 9.8 X10'3 (4.5-11.0)
[2019-09-20 06:00] VITALS: BP 107/40
[2019-09-20 06:20] LABS: ALBUMIN 2.5 G/DL (3.4-5.0); ANION GAP 7 (8-16); BLOOD UREA NITROGEN 21 MG/DL (7-18); BUN/CREATININE RATIO 22.6 (6.6-38.0); CALCIUM 8.6 MG/DL (8.5-10.1); CHLORIDE 109 MMOL/L (99-107); CREATININE 0.93 MG/DL (0.40-0.90); GLUCOSE 117 MG/DL (70-104); SODIUM 143 MMOL/L (135-145); TOTAL CARBON DIOXIDE 26.8 MMOL/L (24-32); eGFR 59 ML/MIN
--- NOTE | 2019-09-20 06:26 | NUR ---
Patient in room PCU 3011. I have received report from marylou Silver and had the opportunity to ask questions and assume patient care.
[2019-09-20] MEDS: K and/or MAG REPLACEMENT MC SCH (08:00)
[2019-09-20] MEDS ORDERED: predniSONE 20 mg tablet PO SCH (08:00)
[2019-09-20] MEDS: cyanocobalamin 500mcg tablet PO SCH (08:11)
[2019-09-20] MEDS: vitamin D (cholecalciferol) 1,000 unit tablet PO SCH (08:11)
[2019-09-20] MEDS: ascorbic acid 500mg tablet PO SCH (08:11)
[2019-09-20] MEDS: lactobacillus rhamnosus 10,000 MMU CELLS/CAPSULE PO SCH (08:11)
[2019-09-20] MEDS: multivitamins, therapeutics tablet PO SCH (08:12)
[2019-09-20] MEDS: nystatin 500,000 unit/5ML UD oral suspension PO SCH ×2 (08:12→13:31)
[2019-09-20] MEDS: sodium bicarbonate 650mg tablet PO SCH ×2 (08:12→13:31)
[2019-09-20] MEDS: pantoprazole 40mg Tablet.DR PO SCH (08:21)
[2019-09-20 09:18] LABS: ANISOCYTOSIS 1+; HYPOCHROMASIA 1+; NUCLEATED RED BLOOD CELLS 1 /100WBC (0-0); PLATELET ESTIMATE NORMAL; TOTAL CELLS COUNTED 100
[2019-09-20 09:19] LABS: POLYCHROMASIA 1+
[2019-09-20 11:00] VITALS: BP 145/55
[2019-09-20] MEDS ORDERED: DILT30TA5 PO (11:58)
[2019-09-20] MEDS ORDERED: LEVO500T2 PO (12:01)
--- NOTE | 2019-09-20 14:30 | NUR ---
reviewed plan for discharge at 1200 noon asked pt regarding availability of home o2 for transport home ,pt stated "Yes, it is in the car" @ 1400 reviewed all discharge prescriptions,confirmed at [facility],info given on meds.PHOEBE dcd from [facility],site clear,meds obtain from from pharmacy storage sent with pt. as pt ready for discharge,different family member to shrimp picker,no o2 available,amb pt on r/a,sao2 76% after amb 20 ft.Daughter went to [facility] and obtained o2 tank for transport pt dc'd home with all belongings on 2l/nc
--- NOTE | 2019-09-20 14:47 | NUR ---
O2 Sat at rest on room air:_87__% If below 89%: Recovery O2 Sat at rest on _2__LPM:_91__%:___% via__2l_nasal cannula (mask/nasal cannula, etc..) No further documentation is necessary. If O2 Sat did not drop below 89% on room air,ambulate patient on room air. O2 Sat while ambulating on room air:___% Recovery O2 Sat while ambulating on ___LPM:___% No further documentation is necessary. If patient does not drop below 89% while ambulating, he/she does not qualify for home O2.
[2019-09-20 15:00] VITALS: BP 131/53
--- NOTE | 2019-09-22 12:59 | NUR ---
Case Management DC follow up: Spoke to pt via telephone s/p: SOB, sepsis. Reports: "feeling okay, a little weak" Denies: worsening SOB, resp distress, acute/persistent CP, WOO, N/V, blurry vision, emergent general pain, slight abd tenderness, lower, middle. or distention, vertigo, syncope, fever, unexplained bruising, bleeding. pt states has not had BM today. Verbalizes understanding of s/s that would warrant 9-/ER visit for further evaluation. Verbalizes understanding of current/new Rx/Levaquin, Diltiazem & why prescribed; taking as ordered, no ase noted r/t polypharmacy. Acknowledges need to follow-up/keep appts w/PCP/[facility]. already seen, had CBC labs, reports improvement, specialists/acknowledged advice to follow up w/established oncologist. Questions answered, needs met at DC. No further questions at this time.
== END 2019-09-20 15:38 | disposition home health service (06) | DRG 871 ==
LOC: ER 14:03 → ED HOLD 17:20 → PCU 3S 21:00
PROVIDERS: ADMIT Family Medicine; ATTEND Internal Medicine
PROC: B32T1ZZ Computerized Tomography (CT Scan) of Left Pulmonary Artery using Low Osmolar Contrast (ICD-10-PCS; 2019-09-14)
PROC: B3201ZZ Computerized Tomography (CT Scan) of Thoracic Aorta using Low Osmolar Contrast (ICD-10-PCS; 2019-09-14)
PROC: B32S1ZZ Computerized Tomography (CT Scan) of Right Pulmonary Artery using Low Osmolar Contrast (ICD-10-PCS; 2019-09-14)
PROC: 30233N1 Transfusion of Nonautologous Red Blood Cells into Peripheral Vein, Percutaneous Approach (ICD-10-PCS; 2019-09-17)
PROC: 0DB68ZX Excision of Stomach, Via Natural or Artificial Opening Endoscopic, Diagnostic (ICD-10-PCS; principal; 2019-09-19)
PROC: 0W3P8ZZ Control Bleeding in Gastrointestinal Tract, Via Natural or Artificial Opening Endoscopic (ICD-10-PCS; 2019-09-19)
DX: A41.9 Sepsis, unspecified organism (principal); J18.9 Pneumonia, unspecified organism; K31.811 Angiodysplasia of stomach and duodenum with bleeding; N39.0 Urinary tract infection, site not specified; J44.1 Chronic obstructive pulmonary disease with (acute) exacerbation; I47.1 Supraventricular tachycardia; J44.0 Chronic obstructive pulmonary disease with (acute) lower respiratory infection; N17.9 Acute kidney failure, unspecified; K92.1 Melena; E87.2 Acidosis; D62 Acute posthemorrhagic anemia; E86.0 Dehydration; E87.6 Hypokalemia; I35.1 Nonrheumatic aortic (valve) insufficiency; K21.9 Gastro-esophageal reflux disease without esophagitis; K31.7 Polyp of stomach and duodenum; M19.90 Unspecified osteoarthritis, unspecified site; J84.10 Pulmonary fibrosis, unspecified; K29.70 Gastritis, unspecified, without bleeding; K44.9 Diaphragmatic hernia without obstruction or gangrene; R09.02 Hypoxemia; Z90.49 Acquired absence of other specified parts of digestive tract; Z85.118 Personal history of other malignant neoplasm of bronchus and lung; Z92.3 Personal history of irradiation; Z88.1 Allergy status to other antibiotic agents; Z88.5 Allergy status to narcotic agent; Z88.2 Allergy status to sulfonamides; Z79.899 Other long term (current) drug therapy
CPT/HCPCS: 36415; 36430; 43227; 43239; 71045; 71275; 74176; 76937; 80048; 80053; 82272; 82728; 82948; 83540; 83550; 83605; 83615; 83735; 83880; 84145; 84484; 85025; 85027; 85384; 85610; 85730; 86140; 86885; 86900; 86901; 86920; 87040; 87081; 87088; 87324; 87449; 87635; 93005; 93306; 94640; 94760; 99152; 99285; A4620; C9113; G0378; J0692; J1644; J1956; J2250; J2920; J2930; J3010; J3490; J7030; J7040; J7512; P9016; Q9967

== ENCOUNTER 2020-01-27 14:19 | Emergency (ER) | payer MEDICARE, BC ==
[~2020-01-27] VITALS: Ht 162.6 cm; Wt 68.2 kg
[~2020-01-27 14:19] MED LIST changes: -ALBU8HFA PO; -B12 PO; -CLOTRIMAZOLE CREAM; +CYAN-51 PO; +DILT30TA5 PO; -DOCU-148; -FERR325T28 PO; -MILK175C5 PO; -MOME17SP BOTHNARES; +NYST1000 PO; -OMEG-143 PO; -TRIAMCINOLONE CREAM; +VITA-332 PO; -VITAMIN A PO; -[UNRECOGNIZED DRUG - MIXTURE]
[2020-01-27] MEDS ORDERED: iohexol 350MG/ML 100ml bottle IV ONE (14:49)
[2020-01-27 14:52] LABS: BASOPHILS # (AUTO) 0.1 X10'3 (0-0.2); BASOPHILS % (AUTO) 0.7 % (0-1); EOSINOPHILS # (AUTO) 0.3 X10'3 (0-0.9); EOSINOPHILS % (AUTO) 4.2 % (0-6); HEMATOCRIT 34.4 % (35.0-45.0); HEMOGLOBIN 11.6 g/dl (12.0-16.0); LYMPHOCYTES # (AUTO) 1.8 X10'3 (1.1-4.8); LYMPHOCYTES % (AUTO) 23.4 % (21-51); MEAN CORPUSCULAR HEMOGLOBIN 28.9 PG (27.0-31.0); MEAN CORPUSCULAR HGB CONC 33.7 g/dL (33.0-36.5); MEAN CORPUSCULAR VOLUME 85.8 FL (78-98); MEAN PLATELET VOLUME 8.4 FL (7.4-10.4); MONOCYTES # (AUTO) 0.8 X10'3 (0-0.9); MONOCYTES % (AUTO) 10.2 % (2-12); NEUTROPHILS # (AUTO) 4.7 X10'3 (1.8-7.7); NEUTROPHILS % (AUTO) 61.5 % (42-75); PLATELET COUNT 356 X10'3 (140-440); RED CELL DISTRIBUTION WIDTH 14.5 % (11.5-14.5); WHITE BLOOD COUNT 7.6 X10'3 (4.5-11.0)
[2020-01-27 15:06] LABS: ALANINE AMINOTRANSFERASE 20 U/L (12-78); ALBUMIN 3.3 G/DL (3.4-5.0); ALBUMIN/GLOBULIN RATIO 0.8 (1.1-1.5); ALKALINE PHOSPHATASE 119 IU/L (46-116); ANION GAP 5 (8-16); ASPARTATE AMINO TRANSFERASE 21 U/L (10-37); BILIRUBIN,TOTAL 0.4 MG/DL (0.1-1.0); BLOOD UREA NITROGEN 13 MG/DL (7-18); BUN/CREATININE RATIO 13.7 (6.6-38.0); CALCIUM 9.7 MG/DL (8.5-10.1); CHLORIDE 100 MMOL/L (99-107); CREATININE 0.95 MG/DL (0.40-0.90); GLUCOSE 100 MG/DL (70-104); POTASSIUM 4.8 MMOL/L (3.5-5.1); SODIUM 133 MMOL/L (135-145); TOTAL CARBON DIOXIDE 28.4 MMOL/L (24-32); TOTAL PROTEIN 7.7 G/DL (6.4-8.2); eGFR 57 ML/MIN
--- NOTE | 2020-01-27 15:26 | NUR ---
pt denies any cp at this time.
[2020-01-27] MEDS ORDERED: ALBU6.7H9 INH (16:32)
[2020-01-27 17:16] VITALS: BP 125/63
== END 2020-01-27 17:18 | disposition home or self-care (01) ==
LOC: ER 14:20
DX: R06.09 Other forms of dyspnea (principal); R06.02 Shortness of breath; R09.02 Hypoxemia; R07.89 Other chest pain; K21.9 Gastro-esophageal reflux disease without esophagitis; M19.90 Unspecified osteoarthritis, unspecified site; Z86.2 Personal history of diseases of the blood and blood-forming organs and certain disorders involving the immune mechanism; Z90.89 Acquired absence of other organs; Z98.890 Other specified postprocedural states; Z72.89 Other problems related to lifestyle; Z88.8 Allergy status to other drugs, medicaments and biological substances; Z88.5 Allergy status to narcotic agent; Z88.2 Allergy status to sulfonamides; Z88.1 Allergy status to other antibiotic agents; Z79.899 Other long term (current) drug therapy
CPT/HCPCS: 36415; 71045; 71275; 80053; 83880; 84484; 85025; 87635; 93005; 99285; Q9967

== ENCOUNTER 2021-08-01 20:06 | Emergency (ER) | payer MEDICARE, BC ==
[~2021-08-01] VITALS: Ht 180.3 cm; Wt 54.5 kg
[~2021-08-01 20:06] MED LIST changes: +ALBU6.7H9 INH
[2021-08-01] MEDS ORDERED: normal saline 1000ML IV soln IVB ONE (20:30)
[2021-08-01] MEDS ORDERED: proCHLORperazine 10 MG/2 ml inj IV ONE ×2 (20:30→22:10)
[2021-08-01 22:07] LABS: BASOPHILS # (AUTO) 0.1 X10'3 (0-0.2); BASOPHILS % (AUTO) 0.5 % (0-1); MEAN PLATELET VOLUME 8.9 FL (7.4-10.4); MONOCYTES # (AUTO) 0.3 X10'3 (0-0.9)
[2021-08-01 22:09] LABS: EOSINOPHILS # (AUTO) 0.2 X10'3 (0-0.9); EOSINOPHILS % (AUTO) 1.6 % (0-6); HEMATOCRIT 33.8 % (35.0-45.0); LYMPHOCYTES # (AUTO) 1.7 X10'3 (1.1-4.8); LYMPHOCYTES % (AUTO) 10.9 % (21-51); MEAN CORPUSCULAR HEMOGLOBIN 25.8 PG (27.0-31.0); MEAN CORPUSCULAR HGB CONC 32.5 g/dL (33.0-36.5); MEAN CORPUSCULAR VOLUME 79.3 FL (78-98); NEUTROPHILS # (AUTO) 13.4 X10'3 (1.8-7.7); PLATELET COUNT 366 X10'3 (140-440); RED BLOOD COUNT 4.26 X10'6 (4.20-5.60); RED CELL DISTRIBUTION WIDTH 16.4 % (11.5-14.5); WHITE BLOOD COUNT 15.8 X10'3 (4.5-11.0)
[2021-08-01 22:16] LABS: ALANINE AMINOTRANSFERASE 36 U/L (12-78); ALBUMIN 3.5 G/DL (3.4-5.0); ALBUMIN/GLOBULIN RATIO 0.9 (1.1-1.5); ALKALINE PHOSPHATASE 150 IU/L (46-116); ANION GAP 14 (8-16); ASPARTATE AMINO TRANSFERASE 35 U/L (10-37); BILIRUBIN,TOTAL 1.2 MG/DL (0.1-1.0); BLOOD UREA NITROGEN 32 MG/DL (7-18); BUN/CREATININE RATIO 30.8 (6.6-38.0); CALCIUM 9.7 MG/DL (8.5-10.1); CHLORIDE 97 MMOL/L (99-107); CREATININE 1.04 MG/DL (0.40-0.90); GLUCOSE 110 MG/DL (70-104); LIPASE 93 U/L (73-393); POTASSIUM 4.3 MMOL/L (3.5-5.1); SODIUM 134 MMOL/L (135-145); TOTAL CARBON DIOXIDE 23.2 MMOL/L (24-32); TOTAL PROTEIN 7.6 G/DL (6.4-8.2); eGFR 51 ML/MIN
--- NOTE | 2021-08-01 22:52 | NUR ---
patient resting comfortably at this time , no more vomiting has taken place
[2021-08-01] MEDS ORDERED: PROC25SU31 RC (23:34)
[2021-08-02 00:52] VITALS: BP 104/69
== END 2021-08-02 00:57 | disposition home or self-care (01) ==
LOC: ER 20:08
DX: E86.0 Dehydration (principal); R11.2 Nausea with vomiting, unspecified; R06.02 Shortness of breath; R19.7 Diarrhea, unspecified; K21.9 Gastro-esophageal reflux disease without esophagitis; M19.90 Unspecified osteoarthritis, unspecified site; Z86.2 Personal history of diseases of the blood and blood-forming organs and certain disorders involving the immune mechanism; Z90.89 Acquired absence of other organs; Z98.890 Other specified postprocedural states; Z72.89 Other problems related to lifestyle; Z88.8 Allergy status to other drugs, medicaments and biological substances; Z88.2 Allergy status to sulfonamides; Z88.1 Allergy status to other antibiotic agents; Z79.899 Other long term (current) drug therapy; Z85.118 Personal history of other malignant neoplasm of bronchus and lung
CPT/HCPCS: 96374; 99283; J0780; J7030; 36415; 80053; 83690; 85025

== ENCOUNTER 2021-08-03 17:56 | Inpatient (IN) | payer MEDICARE, BC ==
[~2021-08-03] VITALS: Ht 154.9 cm; Wt 132.0 kg
[~2021-08-03 17:56] MED LIST changes: +PROC25SU31 RC
--- NOTE | 2021-08-03 18:30 | NUR ---
Patient refused to allow pharmaceutical sales to drawn blood work. Patient stated that Ultrasound is usually required to estabilish access.
[2021-08-03 20:07] LABS: BASOPHILS # (AUTO) 0.1 X10'3 (0-0.2); BASOPHILS % (AUTO) 0.5 % (0-1); EOSINOPHILS # (AUTO) 0.2 X10'3 (0-0.9); EOSINOPHILS % (AUTO) 1.4 % (0-6); HEMATOCRIT 29.5 % (35.0-45.0); HEMOGLOBIN 9.8 g/dl (12.0-16.0); LYMPHOCYTES # (AUTO) 2.2 X10'3 (1.1-4.8); MEAN CORPUSCULAR HEMOGLOBIN 26.6 PG (27.0-31.0); MEAN CORPUSCULAR HGB CONC 33.2 g/dL (33.0-36.5); MEAN PLATELET VOLUME 8.2 FL (7.4-10.4); MONOCYTES # (AUTO) 0.9 X10'3 (0-0.9); MONOCYTES % (AUTO) 8.7 % (2-12); NEUTROPHILS # (AUTO) 7.5 X10'3 (1.8-7.7); NEUTROPHILS % (AUTO) 69.4 % (42-75); PLATELET COUNT 310 X10'3 (140-440); RED BLOOD COUNT 3.69 X10'6 (4.20-5.60); RED CELL DISTRIBUTION WIDTH 16.3 % (11.5-14.5); WHITE BLOOD COUNT 10.8 X10'3 (4.5-11.0)
[2021-08-03 20:23] LABS: ALANINE AMINOTRANSFERASE 57 U/L (12-78); ALBUMIN 3.4 G/DL (3.4-5.0); ALBUMIN/GLOBULIN RATIO 0.9 (1.1-1.5); ALKALINE PHOSPHATASE 159 IU/L (46-116); ANION GAP 10 (8-16); ASPARTATE AMINO TRANSFERASE 39 U/L (10-37); BILIRUBIN,TOTAL 0.3 MG/DL (0.1-1.0); BLOOD UREA NITROGEN 24 MG/DL (7-18); BUN/CREATININE RATIO 23.5 (6.6-38.0); CALCIUM 9.2 MG/DL (8.5-10.1); CHLORIDE 102 MMOL/L (99-107); CREATININE 1.02 MG/DL (0.40-0.90); GLUCOSE 106 MG/DL (70-104); POTASSIUM 3.9 MMOL/L (3.5-5.1); SODIUM 136 MMOL/L (135-145); TOTAL CARBON DIOXIDE 23.6 MMOL/L (24-32); TOTAL PROTEIN 7.3 G/DL (6.4-8.2); eGFR 52 ML/MIN
[2021-08-03] MEDS ORDERED: aspirin 325mg tablet PO ONE (22:25)
--- NOTE | 2021-08-03 22:34 | NUR ---
IV attempt x 2. Left forearm and right forearm. Pt irma well, remained pink, spouse at bedside. Sites c/d/i s complication or adverse reaction.
--- NOTE | 2021-08-04 00:37 | NUR ---
Pt back from CT, pink, alert, no acute/resp distress. Heel warmers on left arm for future IV attempts.
[2021-08-04] MEDS ORDERED: magnesium Cl slow-release 64mg tablet PO PRN (01:05)
[2021-08-04] MEDS ORDERED: potassium CL 10mEq/100ml bag 100 ML IV PRN (01:05)
[2021-08-04] MEDS ORDERED: potassium Cl 20 mEq SR tablet PO PRN ×2 (01:05)
[2021-08-04] MEDS ORDERED: acetaminophen 325mg tablet PO PRN (01:05)
[2021-08-04] MEDS ORDERED: magnesium 4gm in 100ml NS 100 ML IV PRN (01:05)
[2021-08-04] MEDS ORDERED: magnesium 2GM in 50ml NS 50 ML IV PRN (01:05)
[2021-08-04] MEDS ORDERED: mag hydrox/Alum hydrox/simeth 30ml oral suspension PO PRN (01:05)
[2021-08-04] MEDS ORDERED: magnesium hydroxide 30ml (MOM) UD suspension PO PRN (01:05)
[2021-08-04] MEDS ORDERED: ondansetron/PF 4mg/2ml inj IV PRN (01:05)
[2021-08-04] MEDS ORDERED: PERFLUTREN PROTEIN-A MICROSPHR (Optison) 0.22 MG/ML 3ML VIAL IV PRN (01:05)
[2021-08-04] MEDS ORDERED: aminophylline 250mg/10ml inj. IV PRN (01:10)
[2021-08-04] MEDS ORDERED: nitroGLYCERIN 0.4mg SUBLingual tab SL PRN (01:10)
[2021-08-04] MEDS ORDERED: regadenoson 0.4mg/5ml syringe IV PRN (01:10)
[2021-08-04] MEDS ORDERED: metoprolol tartrate 1mg/ml inj IV PRN (01:10)
[2021-08-04] MEDS: normal saline 1000ml 1,000 ML IV SCH ×2 (01:20→19:32)
--- NOTE | 2021-08-04 01:28 | NUR ---
Pt PIV 22G to left hand, site c/d/i s complcation or adverse reaction. IVF insusing well s complication or adverse reaction. Pt pink, alert, no acute/resp distress.
--- NOTE | 2021-08-04 01:58 | NUR ---
Pt ambulatory to bathroom. [place], alert, no acute/resp distress. PIV site c/d/i s complication.
--- NOTE | 2021-08-04 04:19 | NUR ---
Pt pink, no acute/resp distress. Will continue to monitor pt for acute changes and ongoing needs.
--- NOTE | 2021-08-04 04:59 | NUR ---
PT ambulatory to bathroom. Steady gait, no acute/resp distress. PIV site c/d/i s complication or adverse reaction. Bed down, wheels locked, rails 2/2 up and call willis in reach. No acute/resp distress. Will continue to monitor for acute changes and needs.
[2021-08-04] MEDS: heparin, porcine 5000 units/ml vial SQ SCH ×2 (08:00→19:32)
[2021-08-04] MEDS: K and/or MAG REPLACEMENT MC SCH ×2 (08:00→19:31)
[2021-08-04] MEDS: docusate sod 100mg capsule PO SCH ×2 (08:00→19:32)
[2021-08-04 09:29] LABS: POTASSIUM 3.3 MMOL/L (3.5-5.1)
[2021-08-04 09:33] LABS: MAGNESIUM 1.6 MG/DL (1.5-2.4)
--- NOTE | 2021-08-04 09:33 | NUR ---
patient in the room,awake,talking to daughter on the phone.
--- NOTE | 2021-08-04 16:49 | NUR ---
Patient in room ED 13. I have received report from KEYSEATER OPERATOR, Charisse, and had the opportunity to ask questions and assume patient care.
[2021-08-04] MEDS ORDERED: OMEP40CA21 PO (17:01)
[2021-08-04] MEDS ORDERED: ONDA-104 PO (17:01)
[2021-08-04] MEDS ORDERED: PROC10TA10 PO (17:01)
[2021-08-04] MEDS ORDERED: PEGF6SYR SQ (17:01)
[2021-08-04 18:00] VITALS: BP 104/45
--- NOTE | 2021-08-04 18:19 | NUR ---
Problems reprioritized. Patient report given, questions answered & plan of care reviewed with Greer JUAN.
[2021-08-04 22:00] VITALS: BP 116/42
[2021-08-05] VITALS (9 sets, daily range): BP systolic 99–134; BP diastolic 42–63
[2021-08-05 07:45] LABS: BASOPHILS % (AUTO) 0.5 % (0-1); EOSINOPHILS # (AUTO) 0.1 X10'3 (0-0.9); EOSINOPHILS % (AUTO) 0.8 % (0-6); HEMATOCRIT 26.5 % (35.0-45.0); HEMOGLOBIN 8.7 g/dl (12.0-16.0); LYMPHOCYTES # (AUTO) 2.1 X10'3 (1.1-4.8); LYMPHOCYTES % (AUTO) 20.8 % (21-51); MEAN CORPUSCULAR HEMOGLOBIN 26.2 PG (27.0-31.0); MEAN CORPUSCULAR HGB CONC 32.9 g/dL (33.0-36.5); MEAN CORPUSCULAR VOLUME 79.6 FL (78-98); MEAN PLATELET VOLUME 8.6 FL (7.4-10.4); MONOCYTES # (AUTO) 0.8 X10'3 (0-0.9); MONOCYTES % (AUTO) 8.4 % (2-12); NEUTROPHILS # (AUTO) 6.9 X10'3 (1.8-7.7); NEUTROPHILS % (AUTO) 69.5 % (42-75); PLATELET COUNT 246 X10'3 (140-440); RED BLOOD COUNT 3.33 X10'6 (4.20-5.60); RED CELL DISTRIBUTION WIDTH 16.6 % (11.5-14.5)
[2021-08-05 07:56] LABS: ALANINE AMINOTRANSFERASE 32 U/L (12-78); ALBUMIN 2.7 G/DL (3.4-5.0); ALBUMIN/GLOBULIN RATIO 0.8 (1.1-1.5); ALKALINE PHOSPHATASE 126 IU/L (46-116); ANION GAP 11 (8-16); ASPARTATE AMINO TRANSFERASE 23 U/L (10-37); BILIRUBIN,TOTAL 0.3 MG/DL (0.1-1.0); BLOOD UREA NITROGEN 19 MG/DL (7-18); BUN/CREATININE RATIO 30.6 (6.6-38.0); CALCIUM 8.5 MG/DL (8.5-10.1); CHLORIDE 106 MMOL/L (99-107); CREATININE 0.62 MG/DL (0.40-0.90); GLUCOSE 99 MG/DL (70-104); SODIUM 138 MMOL/L (135-145); TOTAL CARBON DIOXIDE 21.4 MMOL/L (24-32); eGFR > 90 ML/MIN
[2021-08-05] MEDS: heparin, porcine 5000 units/ml vial SQ SCH (08:00)
[2021-08-05] MEDS: K and/or MAG REPLACEMENT MC SCH (08:00)
[2021-08-05] MEDS: docusate sod 100mg capsule PO SCH (08:00)
--- NOTE | 2021-08-05 10:01 | NUR ---
Pt. refused heparin and colace after education of importance. Tati PCU
--- NOTE | 2021-08-05 11:53 | NUR ---
Malnutrition consult: Pt admitted w/ angina w/ hx of non small cell carcinoma for which she is currently undergoing treatment for per EMR. Per MST pt reports 2-13lb wt loss and decreased appetite. Current wt not scaled though likely 132lb and not 132kg, previous wt in 2018 was 76kg. Observed pt at bedside sleeping, no visible signs of muscle or fat wasting present. No edema noted, pending PO. At this time pt does not meet minimum criteria for malnutrition. Will continue to monitor. Addendum: 08/05/21 at [address] Amended: Links added.
[2021-08-05] MEDS ORDERED: metoprolol tartrate 1mg/ml inj IV PRN (11:55)
[2021-08-05] MEDS ORDERED: aminophylline 500mg/20ml vial IV PRN (11:55)
[2021-08-05] MEDS ORDERED: regadenoson 0.4mg/5ml syringe IV PRN (11:55)
[2021-08-05] MEDS ORDERED: nitroGLYCERIN 0.4mg SUBLingual tab SL PRN (11:55)
--- NOTE | 2021-08-05 12:55 | NUR ---
Pt. back from stress test; Pt states she's nauseous from medications she received; IV Zofran given for nausea
--- NOTE | 2021-08-05 14:23 | NUR ---
Discharge Instructions Pt. received discharge instructions with no further questions; Pt. IV removed with catheter intact; Per Dr. Barbosa pt ready for discharge; Pt tele box cleaned and returned; There were no further questions at time of discharge. [facility]
== END 2021-08-05 14:23 | disposition home or self-care (01) | DRG 392 ==
LOC: ER 17:56 → ED HOLD 08-04 01:08 → PCU 3S 08-04 17:14
PROVIDERS: ADMIT Internal Medicine; ATTEND Internal Medicine
PROC: 4A02XM4 Measurement of Cardiac Total Activity, External Approach (ICD-10-PCS; principal; 2021-08-05)
PROC: 3E033HZ Introduction of Radioactive Substance into Peripheral Vein, Percutaneous Approach (ICD-10-PCS; 2021-08-05)
DX: K21.9 Gastro-esophageal reflux disease without esophagitis (principal); C34.90 Malignant neoplasm of unspecified part of unspecified bronchus or lung; M17.0 Bilateral primary osteoarthritis of knee; R13.10 Dysphagia, unspecified; M19.90 Unspecified osteoarthritis, unspecified site; R42 Dizziness and giddiness; Z90.49 Acquired absence of other specified parts of digestive tract; Z88.2 Allergy status to sulfonamides; Z88.5 Allergy status to narcotic agent; Z88.1 Allergy status to other antibiotic agents; Z79.899 Other long term (current) drug therapy
CPT/HCPCS: 36415; 70450; 71045; 78452; 80053; 83690; 83735; 83880; 84132; 84484; 85025; 87081; 93005; 93017; 93306; 99285; A9500; G0378; J2405; J2785; J7030

== ENCOUNTER 2022-02-06 12:01 | Emergency (ER) | payer MEDICARE, BC ==
[~2022-02-06] VITALS: Ht 152.4 cm; Wt 47.7 kg
[~2022-02-06 12:01] MED LIST changes: -ALBU6.7H9 INH; -ASPI-1264 PO; -CHOL10002 PO; -CYAN-51 PO; -DILT30TA5 PO; -METH10005 PO; -MILK1TAB PO; -MULT-1085 PO; -NYST1000 PO; -OMEG1CAP2 PO; -OMEP20CA15 PO; +OMEP40CA21 PO; +ONDA-104 PO; +PEGF6SYR SQ; +PROC10TA10 PO; -PROC25SU31 RC; -VITA-332 PO; -VITC500T PO; -VITE1000C PO
[2022-02-06 12:12] VITALS: BP 120/70
[2022-02-06 15:22] LABS: BASOPHILS # (AUTO) 0.1 X10'3 (0-0.2); BASOPHILS % (AUTO) 0.7 % (0-1); EOSINOPHILS # (AUTO) 0.6 X10'3 (0-0.9); EOSINOPHILS % (AUTO) 5.2 % (0-6); HEMATOCRIT 30.2 % (35.0-45.0); HEMOGLOBIN 9.8 g/dl (12.0-16.0); LYMPHOCYTES # (AUTO) 1.8 X10'3 (1.1-4.8); MEAN CORPUSCULAR HEMOGLOBIN 27.2 PG (27.0-31.0); MEAN CORPUSCULAR HGB CONC 32.5 g/dL (33.0-36.5); MEAN CORPUSCULAR VOLUME 83.8 FL (78-98); MEAN PLATELET VOLUME 8.5 FL (7.4-10.4); MONOCYTES # (AUTO) 0.8 X10'3 (0-0.9); MONOCYTES % (AUTO) 6.6 % (2-12); NEUTROPHILS # (AUTO) 8.6 X10'3 (1.8-7.7); NEUTROPHILS % (AUTO) 72.5 % (42-75); PLATELET COUNT 450 X10'3 (140-440); RED CELL DISTRIBUTION WIDTH 16.3 % (11.5-14.5); WHITE BLOOD COUNT 11.9 X10'3 (4.5-11.0)
[2022-02-06 15:29] LABS: ALANINE AMINOTRANSFERASE 17 U/L (12-78); ALBUMIN 2.9 G/DL (3.4-5.0); ALBUMIN/GLOBULIN RATIO 0.6 (1.1-1.5); ALKALINE PHOSPHATASE 173 IU/L (46-116); ANION GAP 10 (8-16); ASPARTATE AMINO TRANSFERASE 22 U/L (10-37); BILIRUBIN,TOTAL 0.3 MG/DL (0.1-1.0); BLOOD UREA NITROGEN 21 MG/DL (7-18); BUN/CREATININE RATIO 27.6 (6.6-38.0); CALCIUM 10.3 MG/DL (8.5-10.1); CHLORIDE 97 MMOL/L (99-107); CREATININE 0.76 MG/DL (0.40-0.90); GLUCOSE 123 MG/DL (70-104); POTASSIUM 4.1 MMOL/L (3.5-5.1); SODIUM 132 MMOL/L (135-145); TOTAL CARBON DIOXIDE 25.3 MMOL/L (24-32); TOTAL PROTEIN 7.6 G/DL (6.4-8.2); eGFR 74 ML/MIN
[2022-02-06] MEDS ORDERED: iohexol 300mg/ml 100ml inj. ONE (16:30)
[2022-02-06 18:38] LABS: CLARITY,URINE CLOUDY (Clear); COLOR,URINE YELLOW (Yellow); GLUCOSE, URINE NEGATIVE (Neg); KETONES,URINE NEGATIVE (Neg); LEUKOCYTE ESTERASE ,URINE LARGE (Neg); NITRITES, URINE NEGATIVE (Neg); OCCULT BLOOD,URINE NEGATIVE (Neg); PROTEIN,URINE NEGATIVE (Neg); UROBILINOGEN,URINE 0.2 E.U/dL (0.2-1.0)
[2022-02-06 18:42] LABS: UA COLLECTION TYPE CLN CATCH MIDSTREAM
[2022-02-06 18:45] LABS: WBC,URINE 30-50 /HPF (0-4)
[2022-02-06] MEDS ORDERED: HYDROcodone/acetaminophen 5mg/325mg tablet PO ONE (18:45)
[2022-02-06 18:46] LABS: BACTERIA,URINE 4+ /HPF (Neg); MUCUS STRANDS NONE SEEN /LPF (Neg); SQUAMOUS EPITHELIAL CELL,UR FEW /LPF (FEW); TRANSITIONAL EPI CELLS,URINE FEW /HPF
[2022-02-06] MEDS ORDERED: HYDR-3972 PO (19:22)
== END 2022-02-06 19:41 | disposition home or self-care (01) ==
LOC: ER 12:02
DX: L98.9 Disorder of the skin and subcutaneous tissue, unspecified (principal); D64.9 Anemia, unspecified; K21.9 Gastro-esophageal reflux disease without esophagitis; Z88.5 Allergy status to narcotic agent; Z88.2 Allergy status to sulfonamides; Z88.1 Allergy status to other antibiotic agents; Z79.899 Other long term (current) drug therapy
CPT/HCPCS: 36415; 71045; 74177; 80053; 81001; 83605; 84145; 85025; 87040; 87077; 87088; 87186; 99285; J3490; Q9967

== ENCOUNTER 2022-02-08 06:46 | Emergency (ER) | payer MEDICARE, BC ==
[~2022-02-08] VITALS: Ht 152.4 cm; Wt 47.3 kg
[~2022-02-08 06:46] MED LIST changes: +HYDR-3972 PO
[2022-02-08] MEDS ORDERED: TETanus/Pertussis (Acell)/Diphther VAC/PF (Tdap-Adult) 0.5ml syringe IMVAC ONE (08:00)
--- NOTE | 2022-02-08 10:15 | NUR ---
Carlos taken off by MD Ruiz.
--- NOTE | 2022-02-08 10:45 | NUR ---
Pt ambulated in front of 's station and back to room with use of FWW.
[2022-02-08] MEDS ORDERED: CEPH-585 PO (10:49)
[2022-02-08] MEDS ORDERED: cephalexin 500mg capsule PO ONE (10:50)
[2022-02-08 11:13] VITALS: BP 120/59
== END 2022-02-08 11:19 | disposition home or self-care (01) ==
LOC: ER 06:47
DX: S00.93XA Contusion of unspecified part of head, initial encounter (principal); N39.0 Urinary tract infection, site not specified; M25.552 Pain in left hip; K21.9 Gastro-esophageal reflux disease without esophagitis; M19.90 Unspecified osteoarthritis, unspecified site; Z86.711 Personal history of pulmonary embolism; Z86.2 Personal history of diseases of the blood and blood-forming organs and certain disorders involving the immune mechanism; Z85.118 Personal history of other malignant neoplasm of bronchus and lung; Z90.89 Acquired absence of other organs; Z98.890 Other specified postprocedural states; Z72.89 Other problems related to lifestyle; Z88.2 Allergy status to sulfonamides; Z88.1 Allergy status to other antibiotic agents; Z88.5 Allergy status to narcotic agent; Z79.2 Long term (current) use of antibiotics; Z79.899 Other long term (current) drug therapy; W19.XXXA Unspecified fall, initial encounter; Y93.89 Activity, other specified; Y92.89 Other specified places as the place of occurrence of the external cause; Y99.8 Other external cause status
CPT/HCPCS: 70450; 71046; 72125; 90471; 90715; 93005; 99284; L0172

== ENCOUNTER 2022-02-17 11:48 | Emergency (ER) | payer MEDICARE, BC ==
[~2022-02-17] VITALS: Ht 152.4 cm; Wt 46.4 kg
[~2022-02-17 11:48] MED LIST changes: +CEPH-585 PO
[2022-02-17 14:24] LABS: CLARITY,URINE SLIGHTLY CLOUDY (Clear); COLOR,URINE YELLOW (Yellow); GLUCOSE, URINE NEGATIVE (Neg); KETONES,URINE NEGATIVE (Neg); LEUKOCYTE ESTERASE ,URINE MODERATE (Neg); NITRITES, URINE NEGATIVE (Neg); OCCULT BLOOD,URINE NEGATIVE (Neg); PROTEIN,URINE NEGATIVE (Neg); UROBILINOGEN,URINE 0.2 E.U/dL (0.2-1.0)
[2022-02-17 14:31] LABS: UA COLLECTION TYPE STRAIGHT CATH
[2022-02-17 14:36] LABS: BACTERIA,URINE 1+ /HPF (Neg); HYALINE CASTS 0-3 /LPF (NEGATIVE); MUCUS STRANDS FEW /LPF (Neg); RBC,URINE 0-2 /HPF (0-2); SQUAMOUS EPITHELIAL CELL,UR MODERATE /LPF (FEW); TRANSITIONAL EPI CELLS,URINE MODERATE /HPF; WBC CLUMPS,URINE FEW /HPF (NEGATIVE)
[2022-02-17] MEDS ORDERED: normal saline 1000ml 1,000 ML IV ONE (14:40)
[2022-02-17] MEDS ORDERED: LIDOcaine/epinephrine/tetracaine TOPICAL sol 3 ML syringe TOP ONE (14:40)
[2022-02-17] MEDS ORDERED: ceFAZolin 1GM/D5W- ADD-VANTAGE 50 ML IV ONE (14:40)
[2022-02-17 16:00] LABS: ALANINE AMINOTRANSFERASE 14 U/L (12-78); ALBUMIN 2.7 G/DL (3.4-5.0); ALBUMIN/GLOBULIN RATIO 0.6 (1.1-1.5); ALKALINE PHOSPHATASE 181 IU/L (46-116); ANION GAP 13 (8-16); ASPARTATE AMINO TRANSFERASE 21 U/L (10-37); BILIRUBIN,TOTAL 0.4 MG/DL (0.1-1.0); BLOOD UREA NITROGEN 17 MG/DL (7-18); BUN/CREATININE RATIO 25.4 (6.6-38.0); CALCIUM 10.1 MG/DL (8.5-10.1); CHLORIDE 101 MMOL/L (99-107); CREATININE 0.67 MG/DL (0.40-0.90); GLUCOSE 89 MG/DL (70-104); POTASSIUM 3.9 MMOL/L (3.5-5.1); SODIUM 139 MMOL/L (135-145); TOTAL PROTEIN 6.9 G/DL (6.4-8.2); eGFR 85 ML/MIN
[2022-02-17] MEDS ORDERED: HYDROcodone/acetaminophen 10/325mg tab PO ONE (16:00)
[2022-02-17 16:01] LABS: EOSINOPHILS # (AUTO) 0.8 X10'3 (0-0.9); MEAN CORPUSCULAR VOLUME 82.9 FL (78-98); MONOCYTES # (AUTO) 0.7 X10'3 (0-0.9)
[2022-02-17 16:03] LABS: BASOPHILS % (AUTO) 0.4 % (0-1); EOSINOPHILS % (AUTO) 6.8 % (0-6); HEMATOCRIT 27.3 % (35.0-45.0); HEMOGLOBIN 8.9 g/dl (12.0-16.0); LYMPHOCYTES # (AUTO) 1.8 X10'3 (1.1-4.8); LYMPHOCYTES % (AUTO) 15.8 % (21-51); MEAN CORPUSCULAR HGB CONC 32.6 g/dL (33.0-36.5); MEAN PLATELET VOLUME 8.5 FL (7.4-10.4); MONOCYTES % (AUTO) 5.9 % (2-12); NEUTROPHILS # (AUTO) 8.1 X10'3 (1.8-7.7); NEUTROPHILS % (AUTO) 71.1 % (42-75); PLATELET COUNT 465 X10'3 (140-440); RED BLOOD COUNT 3.29 X10'6 (4.20-5.60); RED CELL DISTRIBUTION WIDTH 15.9 % (11.5-14.5); WHITE BLOOD COUNT 11.4 X10'3 (4.5-11.0)
[2022-02-17] MEDS ORDERED: CEFD300C3 PO (16:38)
[2022-02-17 17:37] VITALS: BP 152/79
== END 2022-02-17 17:49 | disposition home or self-care (01) ==
LOC: ER 11:48
DX: N39.0 Urinary tract infection, site not specified (principal); R63.0 Anorexia; K21.9 Gastro-esophageal reflux disease without esophagitis; M19.90 Unspecified osteoarthritis, unspecified site; Z88.1 Allergy status to other antibiotic agents; Z88.5 Allergy status to narcotic agent; Z88.2 Allergy status to sulfonamides; Z98.890 Other specified postprocedural states
CPT/HCPCS: 36415; 80053; 81001; 85025; 87088; 96361; 96365; 99284; J0690; J3490; J7030; A4353